=== PATIENT | male | born 1940 | race Caucasian/White ===

== ENCOUNTER 2021-09-27 18:37 | Observation (INO) | payer MEDICARE ==
[~2021-09-27] VITALS: Ht 175.3 cm; Wt 70.9 kg
[2021-09-27] MEDS ORDERED: ACETAMINOPHEN TAB 650MG DOSE (2X325MG) PO ONE (20:05)
[2021-09-27 21:52] LABS: BASO % 0.2 % (0.0-1.0); EOS % 0.2 % (0.0-3.0); HEMATOCRIT 37.7 % (42.0-52.0); HEMOGLOBIN 12.9 g/dl (13.5-17.5); LYMPH # 0.5 10^3/uL (1.5-5.0); LYMPH % 6.3 % (24.0-44.0); MEAN CORPUSCULAR HEMOGLOBIN 30.1 pg (27.0-33.0); MEAN CORPUSCULAR HGB CONC 34.2 g/dl (32.0-36.5); MEAN CORPUSCULAR VOLUME 88.1 fl (80.0-96.0); MONO # 0.7 10^3/uL (0.0-0.8); MONO % 7.8 % (2.0-8.0); NEUTROPHILS # 7.2 10^3/uL (1.5-8.5); NEUTROPHILS % 85.3 % (36.0-66.0); PLATELET COUNT, AUTOMATED 234 10^3/uL (150-450); RED BLOOD COUNT 4.28 10^6/uL (4.30-6.10); WHITE BLOOD COUNT 8.4 10^3/uL (4.0-10.0)
[2021-09-27 22:20] LABS: BLOOD UREA NITROGEN 22 MG/DL (7-18); CALCIUM LEVEL 9.5 MG/DL (8.8-10.2); CARBON DIOXIDE LEVEL 28 MEQ/L (21-32); CHLORIDE LEVEL 107 MEQ/L (98-107); CREATININE FOR GFR 0.96 MG/DL (0.70-1.30); GLOMERULAR FILTRATION RATE > 60.0 (>35); GLUCOSE, FASTING 103 MG/DL (70-100); POTASSIUM SERUM 4.2 MEQ/L (3.5-5.1); SODIUM LEVEL 139 MEQ/L (136-145)
[2021-09-27 22:23] LABS: RSV AMPLIFICATION NEGATIVE (NEGATIVE)
[2021-09-27] MEDS ORDERED: PERCOCET 5MG/325MG TAB PO PRN (22:40)
[2021-09-27] MEDS ORDERED: FINA5TAB2 PO (22:43)
[2021-09-27] MEDS ORDERED: CENT1TAB2 PO (22:43)
[2021-09-27] MEDS ORDERED: TAMS1CAP17 PO (22:43)
[2021-09-27] MEDS ORDERED: PANT40TA29 PO (22:43)
[2021-09-27] MEDS ORDERED: HOME MED LIST COMPLETE! XX SCH (22:45)
[2021-09-27 23:56] LABS: MB/CK RELATIVE INDEX 3.98 (< OR =4)
[2021-09-28] MEDS: KETOROLAC 30 MG/ML 1ML VIAL IV SCH ×5 (01:31→23:27)
[2021-09-28] MEDS: PERCOCET 5MG/325MG TAB PO PRN (01:37)
[2021-09-28 07:10] LABS: BASO % 0.4 % (0.0-1.0); EOS # 0.1 10^3/uL (0.0-0.5); EOS % 1.7 % (0.0-3.0); HEMOGLOBIN 13.1 g/dl (13.5-17.5); LYMPH % 18.4 % (24.0-44.0); MEAN CORPUSCULAR HEMOGLOBIN 29.8 pg (27.0-33.0); MEAN CORPUSCULAR HGB CONC 33.6 g/dl (32.0-36.5); MEAN CORPUSCULAR VOLUME 88.8 fl (80.0-96.0); MONO # 0.8 10^3/uL (0.0-0.8); MONO % 15.6 % (2.0-8.0); NEUTROPHILS # 3.4 10^3/uL (1.5-8.5); NEUTROPHILS % 63.7 % (36.0-66.0); PLATELET COUNT, AUTOMATED 230 10^3/uL (150-450); RED BLOOD COUNT 4.39 10^6/uL (4.30-6.10); WHITE BLOOD COUNT 5.3 10^3/uL (4.0-10.0)
[2021-09-28 07:36] LABS: BLOOD UREA NITROGEN 21 MG/DL (7-18); CALCIUM LEVEL 9.4 MG/DL (8.8-10.2); CARBON DIOXIDE LEVEL 27 MEQ/L (21-32); CHLORIDE LEVEL 108 MEQ/L (98-107); CREATININE FOR GFR 1.06 MG/DL (0.70-1.30); GLOMERULAR FILTRATION RATE > 60.0 (>35); GLUCOSE, FASTING 100 MG/DL (70-100); POTASSIUM SERUM 4.4 MEQ/L (3.5-5.1); SODIUM LEVEL 142 MEQ/L (136-145)
[2021-09-28 09:00] VITALS: BP 151/74
[2021-09-28] MEDS: PANTOPRAZOLE 40MG TAB (PROTONIX) PO SCH ×2 (12:02→20:15)
[2021-09-28] MEDS: FINASTERIDE 5MG TAB PO SCH (12:02)
[2021-09-28] MEDS: TAMSULOSIN 0.4 MG CAP PO SCH (12:02)
[2021-09-28 12:08] VITALS: BP 150/71
[2021-09-28 12:09] VITALS: BP 150/71
[2021-09-28 16:26] VITALS: BP 152/78
[2021-09-28 20:00] VITALS: BP 160/78
[2021-09-29] VITALS: BP 104/57
[2021-09-29 04:00] VITALS: BP 132/72
[2021-09-29] MEDS: KETOROLAC 30 MG/ML 1ML VIAL IV SCH (05:30)
[2021-09-29] MEDS: TAMSULOSIN 0.4 MG CAP PO SCH (07:57)
[2021-09-29] MEDS: PANTOPRAZOLE 40MG TAB (PROTONIX) PO SCH (07:57)
[2021-09-29] MEDS: FINASTERIDE 5MG TAB PO SCH (07:57)
[2021-09-29 08:20] VITALS: BP 146/68
[2021-09-29] MEDS ORDERED: PERCOCET PO (08:24)
[2021-09-29] MEDS: PERCOCET 5MG/325MG TAB PO PRN (09:42)
== END 2021-09-29 10:31 | disposition home or self-care (01) ==
LOC: EDBD 18:37 → M ED 18:37 → M ED INP 19:38 → ENRESERV 09-28 08:00 → M PCU 09-28 08:54
PROVIDERS: ADMIT Surgery; ATTEND Surgery
DX: S22.22XA Fracture of body of sternum, initial encounter for closed fracture (principal); S22.41XA Multiple fractures of ribs, right side, initial encounter for closed fracture; V91.2 Fall due to collision between watercraft and other watercraft or other object; Y93.9 Activity, unspecified; Y99.9 Unspecified external cause status; I10 Essential (primary) hypertension; Z79.899 Other long term (current) drug therapy; Z87.891 Personal history of nicotine dependence; Y92.828 Other wilderness area as the place of occurrence of the external cause; Z91.81 History of falling
CPT/HCPCS: 36415; 70450; 71046; 71250; 72125; 80048; 82550; 82553; 84484; 85025; 87631; 93005; 96374; 96376; 97161; 99285; G0378; J1885